=== PATIENT | female | born 1985 ===

== ENCOUNTER 2021-06-06 11:37 | Day surgery (SDC) | payer OTHER ==
[~2021-06-06] VITALS: Ht 162.6 cm; Wt 65.5 kg
[2021-06-06] VITALS (7 sets, daily range): BP systolic 99–111; BP diastolic 52–72; PULSE 68–80; TEMP 97.3–97.5
[2021-06-06] MEDS ORDERED: COLACE 100100 MG/CAP PO (14:49)
[2021-06-06] MEDS ORDERED: MOTRIN 600600 MG/TAB PO (14:49)
[2021-06-06] MEDS ORDERED: NORCO 325 MG-51 TAB PO (14:50)
[2021-06-06] MEDS ORDERED: METAMUCIL3.4 GM/DOS PO (14:50)
--- NOTE | 2021-06-06 15:25 | NUR ---
Patient arrived back into [facility] from PACU. Report recieved for [employer], Lupe. Patient drowsy, awakens to physical stimulation.
--- NOTE | 2021-06-06 15:40 | NUR ---
Patient continues to be drowsy, only arrousable to physical stimulation.
--- NOTE | 2021-06-06 15:55 | NUR ---
Patient awakens to voice. Reports feeling tired and in pain.
--- NOTE | 2021-06-06 16:05 | NUR ---
Patient complaining of pain to operative area. Pain medication given per AUG.
--- NOTE | 2021-06-06 16:10 | NUR ---
Patient tolerated food and drink with no complaint of nausea or vomiting.
--- NOTE | 2021-06-06 17:00 | NUR ---
Patient went to restroom using stand by assistance. Was able to void.
--- NOTE | 2021-06-06 17:30 | NUR ---
Went through discharge instructions with patient. Questions answered.
--- NOTE | 2021-06-06 18:06 | NUR ---
Patient's arrived and met patient in [facility]. Patient escorted to emergency department entrance via wheelchair and left in the care of her , Jaon.
[2021-06-11] MEDS ORDERED: PERCOCET 325 MG1 TA2 PO (17:59)
== END 2021-06-06 18:05 | disposition home or self-care (01) ==
LOC: SDCO 11:37
DX: K64.2 Third degree hemorrhoids (principal); K64.5 Perianal venous thrombosis; K92.1 Melena; Z79.899 Other long term (current) drug therapy
CPT/HCPCS: J0690; J1100; J1170; J2405; J2704; J3010; J7120